=== PATIENT | male | born 1985 | race Two or more races ===

== ENCOUNTER 2020-02-17 05:53 | Day surgery (SDC) | payer BC, MEDICAID ==
[2020-02-17] VITALS (9 sets, daily range): BP systolic 110–135; BP diastolic 72–94
[~2020-02-17] VITALS: Ht 160 cm; Wt 75.7 kg
[2020-02-17] MEDS ORDERED: Proparacaine 0.5% Opth Soln 15ml LEFT EYE ONE (06:00)
[2020-02-17] MEDS: Tropicamide 1% Opth 15ml Soln LEFT EYE SCH ×3 (06:30→06:50)
[2020-02-17] MEDS: Phenylephrine 2.5% Op 2ml Soln LEFT EYE SCH ×3 (06:31→06:50)
[2020-02-17] MEDS: Cyclopentolate 1% Opth Sol 2ml LEFT EYE SCH ×3 (06:31→06:50)
[2020-02-17] MEDS ORDERED: BASAGLAR SQ (06:42)
[2020-02-17] MEDS ORDERED: ADMALOG SQ (06:42)
[2020-02-17] MEDS ORDERED: Lidocaine 2% MPF 5ml Vial INJ ONE (07:16)
[2020-02-17] MEDS ORDERED: Maxitrol Opth Oint 3.5gm ONE (07:16)
[2020-02-17] MEDS ORDERED: Kenalog-40 1ml Vial ONE (07:16)
[2020-02-17] MEDS ORDERED: BSS 500ml btl ONE (07:16)
[2020-02-17] MEDS ORDERED: EPINEPHrine 1mg/1ml Amp ONE (07:16)
[2020-02-17] MEDS ORDERED: prednisoLONE acetate 1% Opth Susp 1ml ONE (07:16)
[2020-02-17] MEDS ORDERED: Povidone-Iodine 5% opth solution ONE (07:17)
[2020-02-17] MEDS ORDERED: Acetylcholine Injection (OR) ONE (07:17)
[2020-02-17] MEDS ORDERED: Sodium Hyaluronate 10 mg/ml 0.85ml ONE (07:17)
[2020-02-17] MEDS ORDERED: BSS 15ml BTL ONE (07:17)
[2020-02-17] MEDS ORDERED: Tetracaine 0.5% Opth 4ml Soln ONE (07:17)
[2020-02-17] MEDS ORDERED: Bupivacaine 0.75% 30ml vial INJ ONE (07:17)
[2020-02-17 07:20] LABS: BASOPHILS % (AUTO) 0.8 % (0.0-2.0); EOSINOPHILS % (AUTO) 2.4 % (0.0-3.0); HEMATOCRIT 45.8 % (42.0-52.0); LYMPHOCYTES % (AUTO) 21.7 % (20.0-45.0); MEAN CORPUSCULAR VOLUME 94 FL (80-99); MONOCYTES % (AUTO) 10.3 % (1.0-10.0); PLATELET COUNT 235 K/UL (150-450); RED BLOOD COUNT 4.88 M/UL (4.70-6.10); WHITE BLOOD COUNT 8.5 K/UL (4.8-10.8)
[2020-02-17] MEDS ORDERED: Midazolam 2mg/2ml Inj ONE ×2 (07:25→08:34)
[2020-02-17 07:29] LABS: ANION GAP 8 mmol/L (5-15); BLOOD UREA NITROGEN 20 mg/dL (7-18); CALCIUM 8.7 MG/DL (8.5-10.1); CARBON DIOXIDE 26 MMOL/L (21-32); CHLORIDE 103 MMOL/L (98-107); CREATININE 0.9 MG/DL (0.55-1.30); POTASSIUM 3.7 MMOL/L (3.5-5.1); SODIUM 137 MMOL/L (136-145)
[2020-02-17] MEDS ORDERED: LR 1000ml ONE (07:30)
[2020-02-17] MEDS ORDERED: fentaNYL 100 mcg/2 mL IV PRN (07:30)
[2020-02-17] MEDS ORDERED: Hydromorphone 0.5mg/0.5ml inj IVP PRN (07:30)
[2020-02-17] MEDS ORDERED: NS Irrig 1000ml ONE (07:30)
[2020-02-17] MEDS ORDERED: Metoclopramide 10mg/2ml Inj IVP PRN (07:30)
[2020-02-17] MEDS ORDERED: Sterile Water Irrig 1000ml IRRIG ONE (07:30)
--- NOTE | 2020-02-17 07:53 | Pre-Procedure Note/Attestation ---
Pre-Procedure Note/Attestation Complete Prior to Procedure Planned Procedure: left Procedure Narrative: PPV for TRD OS Indications for Procedure Pre-Operative Diagnosis: TRD/VH OS Attestation I attest that I discussed the nature of the procedure; its benefits; risks and complications; and alternatives (and the risks and benefits of such alternatives), prior to the procedure, with the patient (or the patient's legal product support representative). I attest that, if there was a reasonable possibility of needing a blood transfusion, the patient (or the patient's legal product support representative) was given the [facility] standardized written summary, pursuant to the Stephan Fleming-Neon Blood Safety Act ([place] Health and Safety Code # 1645, as amended). I attest that I re-evaluated the patient just prior to the surgery and that there has been no change in the patient's H&P, except as documented below: Osmany Clark M.D., MD Feb 17, 2020 07:53
--- NOTE | 2020-02-17 07:54 | Operative Note - PDOC ---
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 Anesthesia: RB Complications: None Indications for the procedure: The patient has vision loss due to proliferative diabetic retinopathy/tractional retinal detachment and presents today for surgery. After review of the risks, benefits, alternative and the patient signed informed consent into the medical chart. Procedure performed: The patient was met in the pre-op area where informed consent was reviewed. The operative eye was verified, marked and dilated. The patient was transferred to the operative suite, where cardiopulmonary monitoring was established and RB anesthetic was administered without complications. The eye was prepped and draped in sterile ophthalmic fashion. Under microscope visualization the 23 gauge infusion line was placed inferotemporally. After visualization of the tip in the vitreous cavity, the infusion line was turned on. The superotemporal and superonasal cannulas were placed. Under BIOM visualization, peripheral and core vitrectomy was performed. As the vitreous was cleared, view of the posterior pole was improved. Inspection of the posterior pole revealed extensive tractional membranes and gliosis with tractional retinal detachment. Further peripheral vitrectomy was performed to release the guadalupe-posterior traction. Using a combination of instruments, the posterior membranes were dissected to relieve tractional forces. As the membranes were removed, the retinal traction was reduced. No stretch holes or iatrogenic breaks were noted. Endolaser was applied to perform complete PRP. Air-fluid exchange was performed. Silicone oil was infused. The cannulas were removed and sclerotomies were sutured. The eye maintained normal intraocular pressure. Subconjunctival vancomycin and dexamethasone were administered. The lid speculum was removed. The eye was cleaned of prep and drape. Atropine drop and Maxitrol ointment was applied. A pressure patch was placed. The patient was turned over to the anesthesia team and transferred in stable condition to the PACU. Osmany Clark M.D., MD Feb 17, 2020 07:54
[2020-02-17] MEDS ORDERED: Lidocaine 1% MPF 10mg/ml 5ml ONE (08:18)
--- NOTE | 2020-02-17 09:48 | Immediate Post-Op Evaluation ---
Immediate Post-Op Evalulation Immediate Post-Op Evalulation Procedure: left eye par planta vitrectomy; oil injection Date of Evaluation: Feb 17, 2020 Time of Evaluation: 09:35 IV Fluids: 800 Blood Pressure Systolic: 122 Blood Pressure Diastolic: 90 Pulse Rate: 94 Respiratory Rate: 14 O2 Sat by Pulse Oximetry: 99 Temperature (Fahrenheit): 97.8 Nausea: No Vomiting: No Complications none Patient Status: awake, reacts, patent Hydration Status: adequate Drug: declined Marquita Paz CRNA Feb 17, 2020 09:48
--- NOTE | 2020-02-17 09:58 | Anethesia Preoperative Eval ---
Anesthesia Pre-op PMH/ROS General Date of Evaluation: Feb 17, 2020 Time of Evaluation: 07:30 Anesthesiologist: zuleima ASA Score: ASA 3 Mallampati Score Class I : Soft palate, uvula, fauces, pillars visible Class II: Soft palate, uvula, fauces visible Class III: Soft palate, base of uvula visible Class IV: Only hard plate visible Mallampati Classification: Class II Surgeon: Amber Diagnosis: Retinal Detachedment Surgical Procedure: pars plana vitretomy Anesthesia History: none Family History: no anesthesia problems Allergies: Coded Allergies: No Known Allergies (Unverified , 02/17/20) Medications: see eMAR Patient NPO?: Yes NPO Date: Feb 17, 2020 NPO Time: 00:01 Past Medical History Cardiovascular: Denies: HTN, CAD, [place], valve dz, arrhythmia, other Pulmonary: Denies: asthma, COPD, CRISTOBAL, other Gastrointestinal/Genitourinary: Denies: GERD, CRI, ESRD, other Neurologic/Psychiatric: Denies: dementia, CVA, depression/anxiety, TIA, other Endocrine: Reports: DM; Denies: hypothyroidism, steroids, other HEENT: Reports: other - retinal detachment; Denies: cataract (L), cataract (R), glaucoma, MAKAH (L), MAKAH (R) Hematology/Immune: Denies: anemia, DVT, bleeding disorder, other Other: obesity PSxH Narrative: none Anesthesia Pre-op Phys. Exam Physician Exam Last Vital Signs Date Time Temp Pulse Resp B/P (MAP) Pulse Ox O2 Delivery O2 Flow Rate FiO2 02/17/20 06:45 Room Air 02/17/20 06:35 97.0 102 20 135/90 97 Constitutional: NAD Neurologic: CN 2-12 intact Cardiovascular: RRR Respiratory: CTA Gastrointestinal: S/NT/ND Airway Exam Mallampati Classification 3 Mallampati Score: Class III ROM: full Dentures: no upper, no lower Anesthesia Pre-op A/P Labs Hematology Test 02/17/20 06:30 White Blood Count 8.5 K/UL (4.8-10.8) Red Blood Count 4.88 M/UL (4.70-6.10) Hemoglobin 16.0 G/DL (14.2-18.0) Hematocrit 45.8 % (42.0-52.0) Mean Corpuscular Volume 94 FL (80-99) Mean Corpuscular Hemoglobin 32.7 PG (27.0-31.0) H Mean Corpuscular Hemoglobin Concent 34.9 G/DL (32.0-36.0) Red Cell Distribution Width 12.0 % (11.6-14.8) Platelet Count 235 K/UL (150-450) Mean Platelet Volume 7.1 FL (6.5-10.1) Neutrophils (%) (Auto) 65.0 % (45.0-75.0) Lymphocytes (%) (Auto) 21.7 % (20.0-45.0) Monocytes (%) (Auto) 10.3 % (1.0-10.0) H Eosinophils (%) (Auto) 2.4 % (0.0-3.0) Basophils (%) (Auto) 0.8 % (0.0-2.0) Coagulation Test 02/17/20 06:30 Prothrombin Time 11.5 SEC (9.30-11.50) Prothromb Time International Ratio 1.0 (0.9-1.1) Activated Partial Thromboplast Time 29 SEC (23-33) Chemistry Test 02/17/20 06:30 02/17/20 06:39 02/17/20 09:38 Sodium Level 137 MMOL/L (136-145) Potassium Level 3.7 MMOL/L (3.5-5.1) Chloride Level 103 MMOL/L (98-107) Carbon Dioxide Level 26 MMOL/L (21-32) Anion Gap 8 mmol/L (5-15) Blood Urea Nitrogen 20 mg/dL (7-18) H Creatinine 0.9 MG/DL (0.55-1.30) Estimat Glomerular Filtration Rate > 60 mL/min (>60) Glucose Level 196 MG/DL (74-106) H Calcium Level 8.7 MG/DL (8.5-10.1) POC Whole Blood Glucose Pending 202 MG/DL (74-106) H Studies Pre-op Studies: EKG - SR Risk Assessment & Plan Plan: mac Status Change Before Surgery: No Pre-Antibiotics Drug: none Given Within 1 Hr of Incision: No Marquita Paz CRNA Feb 17, 2020 09:58
--- NOTE | 2020-02-17 10:03 | 48 Hour Post Anesthesia Eval ---
Post Anesthesia Evaluation Procedure: left eye par planta vitrectomy; oil injection Date of Evaluation: Feb 17, 2020 Time of Evaluation: 10:03 Blood Pressure Systolic: 123 0: 78 Pulse Rate: 70 Respiratory Rate: 14 O2 Sat by Pulse Oximetry: 98 Airway: patent Nausea: No Vomiting: No Hydration Status: adequate Cardiopulmonary Status: stable Mental Status/LOC: patient returned to baseline Follow-up Care/Observations: na Post-Anesthesia Complications: none Follow-up care needed: N/A Marquita Paz CRNA Feb 17, 2020 10:03
--- NOTE | 2020-02-18 16:29 | Cardiology Report ---
APPROVED REPORT EKG Measurement Heart [id number] <Conclusion> Normal sinus rhythm Nonspecific T wave abnormality Abnormal ECG
== END 2020-02-17 11:20 | disposition home or self-care (01) ==
LOC: SUR 05:53
DX: E11.3532 Type 2 diabetes mellitus with proliferative diabetic retinopathy with traction retinal detachment not involving the macula, left eye (principal); E66.9 Obesity, unspecified; Z68.29 Body mass index [BMI] 29.0-29.9, adult
CPT/HCPCS: 36415; 67040; 67042; 80048; 82962; 85025; 85610; 85730; 93005; 94003; J0171; J0690; J1100; J2250; J2704; J3010; J3301; J3370; J3490; J7120; 94150